=== PATIENT | female | born 1995 | race Two or more races ===

== ENCOUNTER 2020-03-27 15:00 | Inpatient (IN) | payer OTHER ==
[2020-03-27] MEDS ORDERED: AMPICILLIN - 2 GM in SODIUM CHLORIDE 100 ML IVPB ONE (17:43)
[2020-03-27] MEDS ORDERED: ELECTROLYTE-148 SOLN 1,000 ML IV SCH (17:45)
[2020-03-27 18:19] VITALS: BMI 33.4
[2020-03-27] MEDS ORDERED: PCA PUMP NR ONE (19:19)
[2020-03-27] MEDS ORDERED: FENTANYL/BUPIVACAINE/NS/PF - PCEA - 50 ML DISP.SYRIN EP ONE (19:19)
[2020-03-27] MEDS ORDERED: LIDOCAINE HCL 1% PRESERVATIVE FREE - 30ML VIAL ONE (19:50)
[2020-03-27] MEDS ORDERED: OXYTOCIN 20 UNITS in 0.9% NS 20 UNIT/1,000 ML INFUS.BAG IV ONE (19:51)
[2020-03-27 20:08] LABS: BASO % 0.2 % (0-2.0); EOS % 0.1 % (0-4.5); HEMOGLOBIN 10.8 GM/dL (10.7-15.3); LYMPH % 14.7 % (8-40); MCH 29.7 pg (25.7-33.7); MCHC 32.9 g/dl (32.0-36.0); MEAN CELL VOLUME 90.2 fl (80-96); MEAN PLT VOLUME 10.9 fl (7.5-11.1); MONO % 5.6 % (3.8-10.2); NEUT % 79.4 % (42.8-82.8); PLATELET COUNT 190 K/MM3 (134-434); RBC 3.65 M/mm3 (3.60-5.2); RDW 15.3 % (11.6-15.6); WHITE BLOOD COUNT 11.9 K/mm3 (4.0-10.0)
[2020-03-27 20:21] LABS: POTASSIUM 4.1 mmol/L (3.5-5.1)
[2020-03-27 20:23] LABS: INR 0.96 (0.83-1.09); PROTHROMBIN TIME (PATIENT) 11.8 SEC (9.7-13.0)
[2020-03-27 20:24] LABS: BLOOD UREA NITROGEN 6.3 mg/dL (7-18)
[2020-03-27] MEDS ORDERED: morphine SULFATE/PF 0.5 MG/ML (2cc Syringe - QUVA) ONE (20:24)
[2020-03-27 20:26] LABS: ACTIVATED PTT 27.4 SECONDS (25.2-36.5)
[2020-03-27 20:28] LABS: CREATININE 0.4 mg/dL (0.55-1.3)
[2020-03-27] MEDS ORDERED: ONDANSETRON 4 MG/2 ML VIAL IVPUSH PRN (21:18)
[2020-03-27] MEDS ORDERED: IBUPROFEN 600 MG TABLET (FP) PO PRN (21:18)
[2020-03-27] MEDS ORDERED: OXYTOCIN 10 UNITS/ML VIAL ONE ×2 (21:21)
[2020-03-27] MEDS ORDERED: PHENYLEPHRINE HCL 10 MG/1 ML SINGLE DOSE VIAL ONE (21:21)
[2020-03-27] MEDS ORDERED: ceFAZolin SODIUM 1 GM VIAL ONE ×2 (21:21)
[2020-03-27] MEDS ORDERED: AMPICILLIN - 1 GM in SODIUM CHLORIDE 100 ML IVPB SCH (21:45)
[2020-03-27] MEDS ORDERED: oxyCODONE HCL 5 MG TABLET PO PRN (21:48)
[2020-03-27] MEDS ORDERED: METHYLERGONOVINE MALEATE 0.2 MG/1 ML AMP IM PRN (21:48)
[2020-03-27 21:49] LABS: CORD HCO3 23.9 mmHg (20-29); CORD PCO2 73.6 mmHg (30-78); CORD pH 7.129 (7.14-7.44)
[2020-03-27 21:51] LABS: CORD BASE EXCESS -6.7 mmol/L (0-2); CORD HCO3 20.1 mmHg (20-29); CORD PCO2 44.4 mmHg (30-78); CORD pH 7.274 (7.14-7.44)
[2020-03-28] MEDS: IBUPROFEN 800 MG/8 ML IJ IVPB PRN ×3 (00:11→17:29)
[2020-03-28] MEDS ORDERED: IBUPROFEN 800 MG/8 ML IJ IVPB ONE ×2 (00:16→08:22)
[2020-03-28] MEDS ORDERED: oxyCODONE HCL 5 MG TABLET ONE (06:43)
[2020-03-28 08:33] LABS: BASO % 0.2 % (0-2.0); EOS % 0.2 % (0-4.5); HEMATOCRIT 29.6 % (32.4-45.2); HEMOGLOBIN 9.7 GM/dL (10.7-15.3); LYMPH % 13.6 % (8-40); MCH 29.8 pg (25.7-33.7); MCHC 32.7 g/dl (32.0-36.0); MEAN CELL VOLUME 91.2 fl (80-96); MEAN PLT VOLUME 10.9 fl (7.5-11.1); MONO % 7.1 % (3.8-10.2); NEUT % 78.9 % (42.8-82.8); PLATELET COUNT 158 K/MM3 (134-434); RBC 3.25 M/mm3 (3.60-5.2); RDW 15.2 % (11.6-15.6); WHITE BLOOD COUNT 12.9 K/mm3 (4.0-10.0)
[2020-03-28] MEDS ORDERED: OXYTOCIN 20 UNITS in 0.9% NS 20 UNIT/1,000 ML INFUS.BAG IV ONE (13:45)
[2020-03-28] MEDS ORDERED: BISACODYL 10 MG SUPP.RECT RC PRN (21:48)
[2020-03-28] MEDS: ACETAMINOPHEN 325 MG TABLET (FP) PO PRN (22:42)
[2020-03-28] MEDS: SIMETHICONE 80 MG TAB.CHEW (FP) PO PRN (22:42)
[2020-03-29] MEDS: ACETAMINOPHEN 325 MG TABLET (FP) PO PRN ×3 (05:51→18:40)
[2020-03-29] MEDS: IBUPROFEN 600 MG TABLET (FP) PO PRN ×3 (05:52→18:41)
[2020-03-29] MEDS: SIMETHICONE 80 MG TAB.CHEW (FP) PO PRN (05:53)
[2020-03-29 08:18] VITALS: PULSE 74
[2020-03-29] MEDS ORDERED: DIPHTH,PERTUSS(ACELL),TET 0.5 ML DISP.SYRIN IM ONE (10:00)
[2020-03-29] MEDS ORDERED: FLU VACCINE (FLULAVAL) PF 60 MCG/0.5 ML SYRINGE 2020-2021 IM ONE (10:00)
[2020-03-29 20:26] VITALS: TEMP 97.4
[2020-03-30] MEDS: SIMETHICONE 80 MG TAB.CHEW (FP) PO PRN ×2 (00:32→08:34)
[2020-03-30] MEDS: IBUPROFEN 600 MG TABLET (FP) PO PRN ×2 (00:32→08:33)
[2020-03-30] MEDS: ACETAMINOPHEN 325 MG TABLET (FP) PO PRN ×2 (00:32→08:33)
[2020-03-30 09:22] LABS: BASO % 0.3 % (0-2.0); EOS % 1.1 % (0-4.5); HEMATOCRIT 30.4 % (32.4-45.2); HEMOGLOBIN 9.9 GM/dL (10.7-15.3); MCH 29.5 pg (25.7-33.7); MCHC 32.7 g/dl (32.0-36.0); MEAN CELL VOLUME 90.4 fl (80-96); MEAN PLT VOLUME 9.5 fl (7.5-11.1); MONO % 4.2 % (3.8-10.2); NEUT % 84.4 % (42.8-82.8); PLATELET COUNT 197 K/MM3 (134-434); RBC 3.36 M/mm3 (3.60-5.2); RDW 15.6 % (11.6-15.6); WHITE BLOOD COUNT 8.7 K/mm3 (4.0-10.0)
[2020-03-30 10:30] VITALS: BP 120/80
== END 2020-03-30 14:30 | disposition home or self-care (01) | DRG 540 ==
LOC: JDEL 15:00 → JLDR 15:30 → J3W 03-28 14:00
PROVIDERS: ADMIT Obstetrics & Gynecology; ATTEND Obstetrics & Gynecology
PROC: 10D00Z1 Extraction of Products of Conception, Low, Open Approach (ICD-10-PCS; principal; 2020-03-27)
PROC: 10907ZC Drainage of Amniotic Fluid, Therapeutic from Products of Conception, Via Natural or Artificial Opening (ICD-10-PCS; 2020-03-27)
DX: O76 Abnormality in fetal heart rate and rhythm complicating labor and delivery (principal); O99.824 Streptococcus B carrier state complicating childbirth; O77.0 Labor and delivery complicated by meconium in amniotic fluid; O69.89X0 Labor and delivery complicated by other cord complications, not applicable or unspecified; Z3A.37 37 weeks gestation of pregnancy; Z37.0 Single live birth; Z91.018 Allergy to other foods
CPT/HCPCS: 36415; 36600; 80048; 82803; 85025; 85610; 85730; 86780; 86850; 86900; 86901; 88307-TC; 90715; G0008; Q2036